=== PATIENT | female | born 1990 | race Caucasian/White ===

== ENCOUNTER 2021-07-06 09:42 | Outpatient (CLI) | payer OTHER, SELFPAY ==
--- NOTE | ~2021-07-06 | MR_ITS ---
EXAMINATION: MR knee RT wo con DATE: 07/06/2021 10:26 INDICATION: Right knee pain. TECHNIQUE: Magnetic resonance imaging (MRI) of the right knee was performed without intravenous contr ast. Sequences included axial PD-weighted FS FSE, coronal PD-weighted FSE and PD-weighted FS FSE, sag ittal PD-weighted FSE, and sagittal T2-weighted FS FSE. COMPARISON: Right knee radiographs 06/30/2021 FINDINGS: Medial compartment: Medial meniscus is normal. Medial compartment cartilage is normal. Lateral compartment: Lateral meniscus is normal. Lateral compartment cartilage is normal. Patellofemoral compartment: Patellar cartilage is normal. Trochlear cartilage is normal. Ligaments and tendons: The anterior and posterior cruciate ligaments are normal. Medial collateral ligament and lateral peg ateral ligament complex are normal. The extensor mechanism is normal. Fluid: There is a small knee joint effusion. There is a small Bajwa's cyst. There is mild prepatellar bursit is. IMPRESSION: 1. Small knee joint effusion. 2. Small Bajwa's cyst. Reviewed, dictated and finalized at location A.
== END 2021-07-06 09:43 | disposition home or self-care (01) ==
LOC: ANHIMG 09:48
PROVIDERS: Visit Provider Orthopaedic Surgery
DX: M71.21 Synovial cyst of popliteal space [Baker], right knee (principal); M25.461 Effusion, right knee
CPT/HCPCS: 73721

== ENCOUNTER 2021-07-12 09:15 | Outpatient (CLI) | payer OTHER, SELFPAY ==
--- NOTE | ~2021-07-12 | CT_ITS ---
EXAMINATION: CT IAC/mastoids BI wo con DATE: 07/12/2021 10:11 INDICATION: Conductive hearing loss. Vertigo. TECHNIQUE: Computed tomography (CT) of the temporal bones was performed without intravenous contrast. Automated exposure control and iterative reconstruction technique were employed. The dose-length pro duct was 210.13 mGy-cm. COMPARISON: None FINDINGS: RIGHT TEMPORAL BONE: The internal auditory canal is large. The cochlea, vestibule, semicircular canals, vestibular aqueduc t, jugular bulb, facial nerve course, carotid canal, ossicles, Prussak space, scutum, tympanic membra ne, and mastoid air cells are normal. There is a small volume of cerumen in the external auditory can al. LEFT TEMPORAL BONE: The internal auditory canal is large. The cochlea, vestibule, semicircular canals, and vestibular aqu educt are normal. The jugular bulb is high riding. The carotid canal, facial nerve course, ossicles, Prussak space, scutum, tympanic membrane, and mastoid air cells are normal. There is a small volume o f cerumen in the external auditory canal. IMPRESSION: 1. Large bilateral internal auditory canals, which may be a normal variant. MRI of the internal audit ory canals without and with contrast is recommended to exclude neoplasm. Reviewed, dictated and finalized at location A. IMPRESSION: 1. Large bilateral internal auditory canals, which may be a normal variant. MRI of the internal auditory canals without and with contrast is recommended to ex clude neoplasm.
== END 2021-07-12 09:16 | disposition home or self-care (01) ==
LOC: ANHIMG 09:19
PROVIDERS: PCP Otolaryngology; Visit Provider Otolaryngology
DX: H90.0 Conductive hearing loss, bilateral (principal)
CPT/HCPCS: 70480

== ENCOUNTER 2022-01-02 07:39 | Outpatient (CLI) | payer OTHER, SELFPAY ==
--- NOTE | ~2022-01-02 | MR_ITS ---
EXAMINATION: MR brain IAC wo/w con DATE: 01/02/2022 08:54 INDICATION: Bilateral conductive hearing loss. TECHNIQUE: Multisequence magnetic resonance imaging (MRI) of the brain, brainstem, and internal audit ory canals was performed without and with 12 mL MultiHance intravenous contrast. COMPARISON: CT temporal bones 07/12/2021 FINDINGS: There is no intracranial hemorrhage, acute infarction, or abnormal intracranial mass lesion . There are scattered areas of nonspecific increased T2-weighted signal intensity in the cerebral whi te matter, which is within normal limits for the patient's age. The ventricles are normal in size. Th e ventricles are normal in size. The orbits are normal. There is mucosal thickening in the paranasal sinuses. The internal auditory canals and inner and middle ears are normal. The mastoid air cells are normal. IMPRESSION: 1. Normal aging brain. Reviewed, dictated and finalized at location A. IMPRESSION: 1. Normal aging brain.
[2022-01-02 08:12] LABS: Estimated Glomerular Filt Rate > 60
== END 2022-01-02 07:40 | disposition home or self-care (01) ==
LOC: ANHIMG 07:43
PROVIDERS: Visit Provider Otolaryngology
DX: H90.0 Conductive hearing loss, bilateral (principal)
CPT/HCPCS: 70553; A9577

== ENCOUNTER 2022-07-24 15:37 | Outpatient (CLI) | payer OTHER, SELFPAY ==
--- NOTE | ~2022-07-24 | CT_ITS ---
EXAMINATION: CT IAC/mastoids BI wo con, CT sinus wo con DATE: 07/24/2022 16:20 INDICATION: Vertigo TECHNIQUE: 1. Computed tomography (CT) of the temporal bones was performed without intravenous contrast. Sagitta l and coronal reconstructions and reconstructed small [id number] axial images were created. The do se-length product was 239.81 mGy-cm. 2. Computed tomography (CT) of the paranasal sinuses was performed without intravenous contrast. Sagi ttal and coronal reconstructions were performed. The dose-length product was 316.52 mGy-cm. COMPARISON: None FINDINGS: RIGHT TEMPORAL BONE: There appears to be minimal debris/cerumen along the external auditory canal. The tympanic membrane i s difficult to visualize but appears normal. Mastoid air cells and middle ear cavities are clear. The scutum appears normal with no erosions. No abnormal soft tissue in Prussak's space. The cochlea, ves tibule and semicircular canals are normal. The internal auditory canal, cochlear aqueduct and vestibu lar aqueduct are normal. No abnormality seen along the course of the facial nerve. The carotid canal and jugular bulb are normal. LEFT TEMPORAL BONE: External auditory canal is normal. The tympanic membrane is difficult to visualize but appears normal . Mastoid air cells and middle ear cavities are clear. The scutum appears normal with no erosions. No abnormal soft tissue in Prussak's space. The cochlea, vestibule and semicircular canals are normal. The internal auditory canal, cochlear aqueduct and vestibular aqueduct are normal. No abnormality see n along the course of the facial nerve. The carotid canal and jugular bulb are normal. PARANASAL SINUSES: Mild mucosal thickening at the inferior aspect of the bilateral maxillary sinuses. Minimal mucoperios teal thickening the bilateral ethmoid sinuses. The frontal and sphenoid sinuses are clear. Nasal sept um is midline. Orbits are normal. Brain appears normal. Visualized facial and upper cervical soft tis sues are unremarkable. IMPRESSION: 1. Minimal to mild mucosal thickening the bilateral ethmoid and maxillary sinuses. 2. Unremarkable CT of the bilateral temporal bones. Reviewed, dictated and finalized at location B. IMPRESSION: 1. Minimal to mild mucosal thickening the bilateral ethmoid and maxillary sinus es. 2. Unremarkable CT of the bilateral temporal bones.
== END 2022-07-24 15:38 | disposition home or self-care (01) ==
DX: J32.9 Chronic sinusitis, unspecified (principal)
CPT/HCPCS: 70480; 70486

== ENCOUNTER → 2023-11-10 14:37 | Outpatient (CLI) | payer OTHER, SELFPAY ==
--- NOTE | ~2023-11-10 | US_ITS ---
EXAMINATION: US soft tissue head and neck DATE: 11/10/2023 14:57 INDICATION: Left supraclavicular focal swelling. TECHNIQUE: Multiple grayscale and Doppler ultrasound images of the head and neck were obtained. COMPARISON: None FINDINGS: There are normal lymph nodes in the patient's areas of concern in left neck. IMPRESSION: 1. No abnormal mass or lymphadenopathy in left neck in the patient's areas of concern. Reviewed, dictated and finalized at location E. NG [employer] IMPRESSION: 1. No abnormal mass or lymphadenopathy in left neck in the patient's areas of c oncern.
== END ==
PROVIDERS: PCP Nurse Practitioner Family; Visit Provider Nurse Practitioner Family
DX: R22.30 Localized swelling, mass and lump, unspecified upper limb (principal)
CPT/HCPCS: 76536